=== PATIENT | female | born 1995 | race Caucasian/White ===

== ENCOUNTER 2016-11-01 17:30 | Emergency (ER) | payer OTHER ==
[~2016-11-01] VITALS: Ht 162.6 cm; Wt 90.2 kg
[~2016-11-01 17:30] MED LIST: ZYRTEC5 MG PO
[2016-11-01] MEDS ORDERED: VYVANSE40 MG PO (19:05)
[2016-11-01] MEDS ORDERED: CITALOPRAM HBR10 MG PO (19:06)
[2016-11-01] MEDS ORDERED: NAPROSYN500 MG PO (20:14)
[2016-11-01 20:31] VITALS: BP 128/85
== END 2016-11-01 20:32 | disposition home or self-care (01) ==
LOC: EME 17:30 → EXP 19:16
DX: M79.661 Pain in right lower leg (principal); G35 Multiple sclerosis; Z79.3 Long term (current) use of hormonal contraceptives
CPT/HCPCS: 93971; 99281; 99284